=== PATIENT | female | born 1950 | race Caucasian/White ===

== ENCOUNTER 2020-02-07 09:13 | Day surgery (SDC) | payer MEDICARE, OTHER ==
[~2020-02-07] VITALS: Ht 162.6 cm; Wt 86.2 kg
[~2020-02-07 09:13] MED LIST: DICLOFENAC SOD100 G1 TOP; EXCEDRIN MIGRA1 EAC2 PO; FLAX OIL1000 MG PO; FLUOXETINE HCL20 MG PO; IBU600 MG PO; MELATONIN10 M2 PO; NORCO 5-325 TA1 EACH PO; OMEPRAZOLE40 MG PO; PRESERVISION A1 EAC3 PO; TRAZODONE HCL50 MG PO; TURMERIC500 M2 PO
--- NOTE | 2020-02-08 07:51 | OR ---
[facility] [address], [place] [address] Signed DATE OF OPERATION: 02/07/2020 SURGEON: Cassidy Gilbert MD DATE OF PROCEDURE: 02/07/2020 PREOPERATIVE DIAGNOSES: 1. Gastroesophageal reflux disease. 2. NSAIDs. POSTOPERATIVE DIAGNOSES: 1. Small hiatal hernia. 2. Mild gastritis. PROCEDURE: EGD with CLOtest and biopsies of the pyloric bulb and antrum. ESTIMATED BLOOD LOSS: None. INDICATIONS: Angeline is a 69-year-old female, who has had acid reflux for many years. Her four years ago and she is now a . She works couple nights a week at a local [employer]. She said her acid reflux seemed to be getting worse recently. She has doubled the dose of the omeprazole. Consequently, she was asked to see me for an upper endoscopy. She also uses NSAIDs. In the office, I gave her a pamphlet on upper endoscopy and we reviewed the nature of the test along with the risks including, but not limited to gas bloating, crampy abdominal pain, bleeding, perforation requiring surgery, and missed diagnosis. She had expressed understanding and wished to proceed. She is aware of the need for IV conscious sedation. DESCRIPTION OF PROCEDURE: Angeline was taken into our endoscopy suite and placed in the supine semi-recumbent position. The posterior oropharynx was anesthetized with lidocaine spray. A bite block was utilized for the case. She was given 3 mg of Versed and 100 mcg of fentanyl. The adult gastroscope was introduced and advanced under the third portion of the duodenum under direct visualization of camera without difficulty. The duodenum was unremarkable. The pyloric bulb in the stomach showed some mild erythematous changes. We took a biopsy of the pyloric bulb and the antrum for pathologic review. An additional biopsy Electronically Signed By: CASSIDY GILBERT MD 02/08/20 0751 PATIENT NAME: ANGELINE CHRISTIE OPERATIVE REPORT DATE OF : 46 REPORT #: [id number] PHYSICIAN: CASSIDY GILBERT MD PCP: LOWELL REAVES DO REPORT IS CONFIDENTIAL AND NOT TO BE RELEASED WITHOUT AUTHORIZATION [facility] [address], [place] [address] Signed came out of the antrum for CLOtest. Upon retroflexion of the scope, she does have a small hiatal hernia. The scope was withdrawn up to the area of the GE junction, which was compliant without stricture. Her Z-line is more or less intact. There was really if any irritation at all. There was no Millan's mucosa, no distal esophagitis. No gastric or esophageal varices. The middle and upper esophagus were unremarkable. After this, the gas was suctioned out and the gastroscope removed. Angeline tolerated the the procedure quite well. RECOMMENDATIONS: I will see Angeline back in my office in 7 to 14 days to review her results. Cassidy Gilbert MD ALB/MODL /[id number] cc: Lowell Reaves DO Copies: LOWELL REAVES DO ~ Electronically Signed By: CASSIDY GILBERT MD 02/08/20 0751 PATIENT NAME: ANGELINE CHRISTIE BROWN OPERATIVE REPORT DATE OF : 46 REPORT #: [id number] PHYSICIAN: CASSIDY GILBERT MD PCP: LOWELL REAVES DO REPORT IS CONFIDENTIAL AND NOT TO BE RELEASED WITHOUT AUTHORIZATION
--- NOTE | 2020-02-08 11:56 | PATH ---
[facility] [address], [place] [address] Signed SPECIMEN(S): A PYLORIC BULB SPECIMEN(S): B ANTRUM SPECIMEN SOURCE: A. PYLORIC BULB B. ANTRUM CLINICAL HISTORY: Preop Diagnosis: GERD, worsening. Postop Diagnosis: Small hiatal hernia, mild gastritis. MICROSCOPIC DESCRIPTION: Histologic sections of all submitted blocks are examined by light microscopy. These findings, together with the gross examination, support the pathologic diagnosis. FINAL PATHOLOGIC DIAGNOSIS: A. 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 - Negative for dysplasia or malignancy. B. Stomach, antrum, biopsy: - Antral mucosa with mild chronic, inactive gastritis. - Negative for Helicobacter organisms on HE stain. - Negative for dysplasia or malignancy. NAL:cml:C2NR GROSS DESCRIPTION: Two specimens are received in two containers, labeled "CJ." A. The specimen, labeled "CJ, #1," and designated on the requisition "pyloric bulb," is received in formalin and consists of one thakur soft tissue fragment that measures 0.3 cm in greatest dimension. The specimen is entirely submitted in cassette (A1). B. The specimen, labeled "CJ, #2," and designated on the requisition "antrum," is received in formalin and consists of one thakur soft tissue fragment that measures 0.4 cm in greatest dimension. The specimen is entirely submitted in cassette (B1). AT (under the direct supervision of a pathologist) The Gross Description was prepared using a voice recognition system. The report was reviewed for accuracy; however, sound-alike word errors, addition and/or deletions may occur. If there is any question about this report, please contact Client Services. PATIENT NAME: KALPESH CHRISTIE PATHOLOGY DATE OF : 46 REPORT #: [id number] PHYSICIAN: JESSICA MCCARTNEY PCP: ALYCE REAVES DO REPORT IS CONFIDENTIAL AND NOT TO BE RELEASED WITHOUT AUTHORIZATION [facility] [address] [address] Signed PERFORMING LABORATORY: The technical component was performed by [place] [address] ([employer] Installer: Mariama Jennings MD; CLIA# [id number]). Professional interpretation was performed by [facility], [address] [address] (CLIA# [id number]). Diagnostician: Starla Leonard MD Pathologist Electronically Signed 02/08/2020 Copies: ~ PATIENT NAME: KALPESH CHRISTIE PATHOLOGY DATE OF : 46 REPORT #: [id number] PHYSICIAN: JESSICA MCCARTNEY PCP: ALYCE REAVES DO REPORT IS CONFIDENTIAL AND NOT TO BE RELEASED WITHOUT AUTHORIZATION
== END 2020-02-07 11:42 | disposition home or self-care (01) ==
LOC: DS 09:13 → OPS 09:13 → DS 10:30 → OPS 10:30
PROVIDERS: ATTEND Colon & Rectal Surgery
PROC: 0DB78ZX Excision of Stomach, Pylorus, Via Natural or Artificial Opening Endoscopic, Diagnostic (ICD-10-PCS; principal; 2020-02-07 10:30)
DX: K29.50 Unspecified chronic gastritis without bleeding (principal); K21.9 Gastro-esophageal reflux disease without esophagitis; Q45.3 Other congenital malformations of pancreas and pancreatic duct; G47.00 Insomnia, unspecified; E78.5 Hyperlipidemia, unspecified; F32.9 Major depressive disorder, single episode, unspecified; Z79.899 Other long term (current) drug therapy
CPT/HCPCS: 86677; G0500; J2250; J3010; J7121

== ENCOUNTER 2025-01-24 15:48 | Emergency (ER) | payer MEDICARE, OTHER ==
[~2025-01-24] VITALS: Ht 162.6 cm; Wt 77.8 kg
[2025-01-24 19:33] VITALS: BP 163/85
== END 2025-01-24 19:35 | disposition home or self-care (01) ==
LOC: ED 15:48
DX: R07.81 Pleurodynia (principal); E78.00 Pure hypercholesterolemia, unspecified; K21.9 Gastro-esophageal reflux disease without esophagitis; Z79.899 Other long term (current) drug therapy
CPT/HCPCS: 71046; 99283-25